=== PATIENT | female | born 1975 | race Caucasian/White ===

== ENCOUNTER 2017-04-25 20:04 | Emergency (ER) | payer SELFPAY ==
--- NOTE | 2017-04-25 20:12 | Emergency Department Report ---
HPI - General Chief Complaint: Altered Mental Status Time Seen by Provider: 04/25/17 20:11 - HPI HPI: Chief complaint not acting right 42-year-old female of descent was brought to ED by son who stated that she wasn't acting right. Son states the patient is an alcoholic and has been drinking tequila all day today. He stated today she drank a little bit more than usual. She is lethargic open her eyes but does not follow command. Patient has been like this before in the past after being severely drunk. No chest pain mild nausea. Upon arrival in the ED patient had one episode of vomiting. Was placed upon aspiration precautions. ED Past Medical Hx - Past Medical History Previous Medical History?: No Hx Hypertension: No Hx CVA: No - Surgical History Past Surgical History?: No Hx Coronary Stent: No Hx Open Heart Surgery: No - Family History Family history: asthma - Social History Smoking Status: Current Some Day Smoker Substance Use Type: Alcohol - Medications Home Medications: Home Medications Medication Instructions Recorded Confirmed Last Taken Type Hydrochlorothiazide [HCTZ] 25 mg PO QDAY #30 tablet 04/26/17 Unknown Rx ED Review of Systems ROS: Stated complaint: AMS Other details as noted in HPI Comment: All other systems reviewed and negative Neurological: weakness, other (lethargic) Psychiatric: anxiety Physical Exam - Physical Exam Physical Exam: Vital signs reviewed Gen. alert and oriented 3 in no distress Head atraumatic normocephalic Eyes PERR LA EOMI Chest regular rate and rhythm normal S1-S2 lungs clear bilaterally Abdomen soft nondistended Back no point tenderness paravertebral tenderness Neuro no focal deficit. Sleepy but easily arousable Psych normal mood. ED Course - Reevaluation(s) Reevaluation #1: 04/26/17 00:35 Observing ED for 3-1/2 hours feels much better much more alert follow commands and does not speak Estonian in room At respirations. Advised to follow up with outpatient alcohol treatment such as alcoholic anonymous. Patient voiced understanding denies inpatient detox. Not sure she is willing to quit at this time. ED Medical Decision Making - Lab Data Result diagrams: 04/25/17 20:40 04/25/17 20:40 Critical care attestation.: If time is entered above; I have spent that time in minutes in the direct care of this critically ill patient, excluding procedure time. ED Disposition Clinical Impression: Alcohol intoxication delirium, acute, hypoactive, Hypertension Disposition: DC-01 TO HOME OR SELFCARE Is pt being admited?: No Does the pt Need Aspirin: No Condition: Stable Instructions: Hypertension (ED) Prescriptions: Hydrochlorothiazide [HCTZ] 25 mg PO QDAY #30 tablet
[2017-04-25] MEDS ORDERED: NACL 0.9% 1000 ML 1,000 ML IV ONE (20:14)
[2017-04-25] MEDS ORDERED: ZOFRAN IV ONE (20:41)
[2017-04-25 20:59] LABS: ISTAT Base Excess -1; ISTAT HCO3 24.6; ISTAT PCO2 46.7 (35-45); ISTAT PO2 108 (80-105); ISTAT SO2 98; ISTAT TCO2 26
[2017-04-25 21:13] LABS: Alanine Aminotransferase 27 units/L (7-56); Albumin/Globulin Ratio 1.3 %; Alkaline Phosphatase 119 units/L (35-129); Anion Gap 18 mmol/L; Bilirubin,Total < 0.20 mg/dL (0.1-1.2); Blood Urea Nitrogen 13 mg/dL (7-17); Calcium 8.9 mg/dL (8.4-10.2); Carbon Dioxide 23 mmol/L (22-30); Chloride 101.8 mmol/L (98-107); Glucose 219 mg/dL (65-100); Potassium 3.8 mmol/L (3.6-5.0); Sodium 139 mmol/L (137-145)
--- NOTE | 2017-04-25 21:20 | Cat Scan Report ---
FINAL REPORT PROCEDURE: CT HEAD/BRAIN WO CON TECHNIQUE: Computerized tomography of the head was performed without contrast material. HISTORY: Altered mental status COMPARISON: No prior studies are available for comparison. FINDINGS: There is no CT evidence of intracranial mass, hemorrhage, acute territorial infarction, or hydrocephalus. The intracranial arteries are symmetric in density. Calvarium is intact. Visualized paranasal sinuses and mastoids are aerated. IMPRESSION: No CT evidence of acute abnormality
[2017-04-25 21:27] LABS: Basophils % (Auto) 0.5 % (0.0-1.8); Eosinophils % (Auto) 1.8 % (0.0-4.3); Hematocrit 37.5 % (30.3-42.9); Hemoglobin 11.9 gm/dl (10.1-14.3); Mean Corpuscular HGB Conc 32 % (30-34); Platelet Count 318 K/mm3 (140-440); Red Blood Count 5.52 M/mm3 (3.65-5.03); Red Cell Distribution Width 18.3 % (13.2-15.2); White Blood Count 9.5 K/mm3 (4.5-11.0)
[2017-04-25 21:35] LABS: Mean Corpuscular Hemoglobin 22 pg (28-32); Mean Corpuscular Volume 68 fl (79-97)
[2017-04-25 22:03] LABS: Urine Drugs of Abuse Note Disclamer
--- NOTE | 2017-04-25 22:20 | XRay Report ---
FINAL REPORT PROCEDURE: XR CHEST 1V AP TECHNIQUE: Chest radiograph anteroposterior view. CPT 22424 HISTORY: Altered mental status COMPARISON: No prior studies are available for comparison. FINDINGS: Heart: Normal. Mediastinum/Vessels: Normal contour. Lungs/Pleural space: No infiltrate, effusion, or pneumothorax. Bony thorax: No acute osseous abnormality. Life support devices: None. IMPRESSION: No radiographic evidence of acute cardiopulmonary abnormality.
[2017-04-25 23:38] VITALS: BP 126/69
== END 2017-04-26 01:12 | disposition home or self-care (01) ==
LOC: ED 20:04
DX: F10.121 Alcohol abuse with intoxication delirium (principal); R03.0 Elevated blood-pressure reading, without diagnosis of hypertension; Z72.0 Tobacco use
CPT/HCPCS: 36415; 51702; 70450; 71010; 80053; 80307; 82803; 82962; 85025; 93005; 93010; 96361; 96374; 99285; G0480; J2405; J7030; 80320

== ENCOUNTER 2022-01-04 22:07 | Inpatient (IN) | payer SELFPAY ==
[2022-01-04] MEDS ORDERED: SODIUM CHLORIDE 0.9% 1000 ML 1,000 ML IV ONE (22:26)
--- NOTE | 2022-01-04 22:26 | Emergency Department Report ---
ED Altered Mental Status HPI - General Chief Complaint: Altered Mental Status Stated Complaint: ETOH/UNRESPONSIVE PUI?: No Time Seen by Provider: 01/04/22 22:25 Source: family, EMS Mode of arrival: Stretcher Limitations: Language Barrier, Altered Mental Status - History of Present Illness Initial Comments: Patient is a 46-year-old female with past medical history significant for diabetes, hypertension. Patient presents emergency department with complaint of altered mental status. Per EMS patient family states she has been drinking heavily. When EMS arrived patient was unresponsive and had vomiting. When patient arrived to the emergency department she is still vomiting and smells of alcohol. Patient unable to give any additional history. - Related Data Previous Rx's Medication Instructions Recorded Last Taken Type hydroCHLOROthiazide [HCTZ] 25 mg PO QDAY #30 tablet 04/26/17 Unknown Rx Allergies Allergy/AdvReac Type Severity Reaction Status Date / Time No Known Allergies Allergy Unverified 04/25/17 20:18 ED Review of Systems ROS: Stated complaint: ETOH/UNRESPONSIVE Other details as noted in HPI Comment: Unobtainable due to pts medical conditions ED Past Medical Hx - Past Medical History Hx Hypertension: No Hx CVA: No - Surgical History Hx Coronary Stent: No Hx Open Heart Surgery: No - Social History Smoking Status: Current Some Day Smoker Substance Use Type: Alcohol - Medications Home Medications: Home Medications Medication Instructions Recorded Confirmed Last Taken Type hydroCHLOROthiazide [HCTZ] 25 mg PO QDAY #30 tablet 04/26/17 Unknown Rx ED Physical Exam - General Limitations: Language Barrier, Altered Mental Status General appearance: lethargic - Head Head exam: Present: atraumatic, normocephalic - Eye Eye exam: Present: normal appearance - ENT ENT exam: Present: mucous membranes moist - Neck Neck exam: Present: normal inspection - Respiratory Respiratory exam: Present: normal lung sounds bilaterally. Absent: respiratory distress - Cardiovascular Cardiovascular Exam: Present: tachycardia. Absent: systolic murmur, diastolic murmur, rubs, gallop - GI/Abdominal GI/Abdominal exam: Present: soft, normal bowel sounds. Absent: distended, tenderness - Rectal Rectal exam: Present: deferred - Extremities Exam Extremities exam: Present: normal inspection - Back Exam Back exam: Present: normal inspection - Neurological Exam Neurological exam: Present: other (Patient is lethargic and appears intoxicated) - Psychiatric Psychiatric exam: Present: normal affect, normal mood - Skin Skin exam: Present: warm, dry, intact, normal color. Absent: rash ED Course Vital Signs 01/04/22 01/04/22 01/04/22 22:44 23:14 23:15 Temperature 98 F Pulse Rate 108 H 102 H 100 H Respiratory 18 17 17 Rate Blood Pressure 142/78 O2 Sat by Pulse 100 95 95 Oximetry 01/04/22 01/04/22 01/04/22 23:31 23:37 23:45 Temperature Pulse Rate 130 H 108 H 104 H Respiratory 30 H 11 L 16 Rate Blood Pressure O2 Sat by Pulse 93 94 80 L Oximetry 01/05/22 01/05/22 01/05/22 00:01 00:15 00:49 Temperature Pulse Rate 99 H 95 H 99 H Respiratory 17 16 22 Rate Blood Pressure O2 Sat by Pulse 81 L 100 99 Oximetry 01/05/22 01/05/22 01/05/22 01:01 01:15 01:31 Temperature Pulse Rate 100 H 94 H 98 H Respiratory 12 16 16 Rate Blood Pressure 145/62 145/62 145/62 O2 Sat by Pulse 96 77 L 78 L Oximetry 01/05/22 01/05/22 01/05/22 01:45 02:01 02:15 Temperature Pulse Rate 97 H 97 H 91 H Respiratory 13 15 17 Rate Blood Pressure 145/62 160/80 160/80 O2 Sat by Pulse 100 100 100 Oximetry 01/05/22 01/05/22 01/05/22 02:31 02:45 03:01 Temperature Pulse Rate 88 93 H 95 H Respiratory 15 17 14 Rate Blood Pressure 160/80 160/80 144/68 O2 Sat by Pulse 100 100 100 Oximetry 01/05/22 01/05/22 01/05/22 03:15 03:31 03:51 Temperature Pulse Rate 92 H 93 H 104 H Respiratory 17 16 15 Rate Blood Pressure 144/68 144/68 144/68 O2 Sat by Pulse 100 100 95 Oximetry 01/05/22 01/05/22 01/05/22 04:09 04:15 04:31 Temperature Pulse Rate 95 H 93 H 92 H Respiratory 19 16 14 Rate Blood Pressure O2 Sat by Pulse 95 91 95 Oximetry - Reevaluation(s) Reevaluation #1: 01/04/22 23:15 Seems to be no longer actively vomiting. Plan for CT scan of the brain. Reevaluation #2: 01/05/22 04:58 CT head is negative. Patient received IV fluid hydration. We will also give subcu insulin as she has negative ketones. Plan for admission given alcohol level 400 at admission. - Lab Data Result diagrams: 01/04/22 23:50 01/04/22 23:50 Lab Results 01/04/22 01/04/22 01/04/22 Range/Units 23:50 23:50 23:50 WBC 7.2 (4.5-11.0) K/mm3 RBC 5.65 H (3.65-5.03) M/mm3 Hgb 11.6 (10.1-14.3) gm/dl Hct 37.5 (30.3-42.9) % MCV 66 L (79-97) fl MCH 21 L (28-32) pg MCHC 31 (30-34) % RDW 20.0 H (13.2-15.2) % Plt Count 377 (140-440) K/mm3 Lymph % (Auto) 30.5 (13.4-35.0) % Johnston % (Auto) 3.0 (0.0-7.3) % Eos % (Auto) 0.6 (0.0-4.3) % Baso % (Auto) 0.4 (0.0-1.8) % Lymph # (Auto) 2.2 (1.2-5.4) K/mm3 Johnston # (Auto) 0.2 (0.0-0.8) K/mm3 Eos # (Auto) 0.0 (0.0-0.4) K/mm3 Baso # (Auto) 0.0 (0.0-0.1) K/mm3 Seg Neutrophils % 65.5 (40.0-70.0) % Seg Neutrophils # 4.7 (1.8-7.7) K/mm3 ABG pH (7.350-7.450) pH Units ABG pCO2 mm Hg ABG pO2 (80.0-90.0) mm Hg ABG HCO3 (20.0-26.0) mmol/L ABG O2 Saturation (95.0-99.0) % ABG O2 Content (0.0-44) ABG Base Excess (-2.0-3.0) mmol/L ABG Hemoglobin (12.0-16.0) gm/dl ABG Carboxyhemoglobin (0.0-5.0) % ABG Methemoglobin (0.0-1.5) % Oxyhemoglobin (95.0-99.0) % FiO2 % Sodium 137 (137-145) mmol/L Potassium 3.7 (3.6-5.0) mmol/L Chloride 98.2 (98-107) mmol/L Carbon Dioxide 17 L (22-30) mmol/L Anion Gap 26 mmol/L BUN 19 H (7-17) mg/dL Creatinine 0.7 (0.6-1.2) mg/dL Estimated GFR > 60 ml/min BUN/Creatinine Ratio 27 % Glucose 357 H (65-100) mg/dL Ketones Quantitative (Negative) Calcium 8.8 (8.4-10.2) mg/dL Total Bilirubin < 0.20 (0.1-1.2) mg/dL AST 23 (5-40) units/L ALT 17 (7-56) units/L Alkaline Phosphatase 146 H (35-129) units/L Total Creatine Kinase 76 (30-135) units/L Troponin T < 0.010 (0.00-0.029) ng/mL Total Protein 6.9 (6.3-8.2) g/dL Albumin 3.8 L (3.9-5) g/dL Albumin/Globulin Ratio 1.2 % HCG, Qual (Negative) Urine Color (Yellow) Urine Turbidity (Clear) Urine pH (5.0-7.0) Ur Specific [place] (1.003-1.030) Urine Protein (Negative) mg/dL Urine Glucose (UA) (Negative) mg/dL Urine Ketones (Negative) mg/dL Urine Blood (Negative) Urine Nitrite (Negative) Urine Bilirubin (Negative) Urine Urobilinogen (<2.0) mg/dL Ur Leukocyte Esterase (Negative) Urine WBC (Auto) (0.0-6.0) /HPF Urine RBC (Auto) (0.0-6.0) /HPF Urine Mucus /HPF Salicylates < 0.3 L (2.8-20.0) mg/dL Urine Opiates Screen Urine Methadone Screen Acetaminophen (10.0-30.0) ug/mL Ur Barbiturates Screen Ur Phencyclidine Scrn Ur Amphetamines Screen U Benzodiazepines Scrn Urine Cocaine Screen U Marijuana (THC) Screen Drugs of Abuse Note Plasma/Serum Alcohol (0-0.07) % 01/04/22 01/04/22 01/04/22 Range/Units 23:50 23:50 23:50 WBC (4.5-11.0) K/mm3 RBC (3.65-5.03) M/mm3 Hgb (10.1-14.3) gm/dl Hct (30.3-42.9) % MCV (79-97) fl MCH (28-32) pg MCHC (30-34) % RDW (13.2-15.2) % Plt Count (140-440) K/mm3 Lymph % (Auto) (13.4-35.0) % Johnston % (Auto) (0.0-7.3) % Eos % (Auto) (0.0-4.3) % Baso % (Auto) (0.0-1.8) % Lymph # (Auto) (1.2-5.4) K/mm3 Johnston # (Auto) (0.0-0.8) K/mm3 Eos # (Auto) (0.0-0.4) K/mm3 Baso # (Auto) (0.0-0.1) K/mm3 Seg Neutrophils % (40.0-70.0) % Seg Neutrophils # (1.8-7.7) K/mm3 ABG pH (7.350-7.450) pH Units ABG pCO2 mm Hg ABG pO2 (80.0-90.0) mm Hg ABG HCO3 (20.0-26.0) mmol/L ABG O2 Saturation (95.0-99.0) % ABG O2 Content (0.0-44) ABG Base Excess (-2.0-3.0) mmol/L ABG Hemoglobin (12.0-16.0) gm/dl ABG Carboxyhemoglobin (0.0-5.0) % ABG Methemoglobin (0.0-1.5) % Oxyhemoglobin (95.0-99.0) % FiO2 % Sodium (137-145) mmol/L Potassium (3.6-5.0) mmol/L Chloride (98-107) mmol/L Carbon Dioxide (22-30) mmol/L Anion Gap mmol/L BUN (7-17) mg/dL Creatinine (0.6-1.2) mg/dL Estimated GFR ml/min BUN/Creatinine Ratio % Glucose (65-100) mg/dL Ketones Quantitative (Negative) Calcium (8.4-10.2) mg/dL Total Bilirubin (0.1-1.2) mg/dL AST (5-40) units/L ALT (7-56) units/L Alkaline Phosphatase (35-129) units/L Total Creatine Kinase (30-135) units/L Troponin T (0.00-0.029) ng/mL Total Protein (6.3-8.2) g/dL Albumin (3.9-5) g/dL Albumin/Globulin Ratio % HCG, Qual Negative (Negative) Urine Color (Yellow) Urine Turbidity (Clear) Urine pH (5.0-7.0) Ur Specific [place] (1.003-1.030) Urine Protein (Negative) mg/dL Urine Glucose (UA) (Negative) mg/dL Urine Ketones (Negative) mg/dL Urine Blood (Negative) Urine Nitrite (Negative) Urine Bilirubin (Negative) Urine Urobilinogen (<2.0) mg/dL Ur Leukocyte Esterase (Negative) Urine WBC (Auto) (0.0-6.0) /HPF Urine RBC (Auto) (0.0-6.0) /HPF Urine Mucus /HPF Salicylates (2.8-20.0) mg/dL Urine Opiates Screen Urine Methadone Screen Acetaminophen 5.0 L (10.0-30.0) ug/mL Ur Barbiturates Screen Ur Phencyclidine Scrn Ur Amphetamines Screen U Benzodiazepines Scrn Urine Cocaine Screen U Marijuana (THC) Screen Drugs of Abuse Note Plasma/Serum Alcohol 0.40 H (0-0.07) % 01/04/22 01/05/22 01/05/22 Range/Units 23:50 02:36 03:57 WBC (4.5-11.0) K/mm3 RBC (3.65-5.03) M/mm3 Hgb (10.1-14.3) gm/dl Hct (30.3-42.9) % MCV (79-97) fl MCH (28-32) pg MCHC (30-34) % RDW (13.2-15.2) % Plt Count (140-440) K/mm3 Lymph % (Auto) (13.4-35.0) % Johnston % (Auto) (0.0-7.3) % Eos % (Auto) (0.0-4.3) % Baso % (Auto) (0.0-1.8) % Lymph # (Auto) (1.2-5.4) K/mm3 Johnston # (Auto) (0.0-0.8) K/mm3 Eos # (Auto) (0.0-0.4) K/mm3 Baso # (Auto) (0.0-0.1) K/mm3 Seg Neutrophils % (40.0-70.0) % Seg Neutrophils # (1.8-7.7) K/mm3 ABG pH 7.291 L (7.350-7.450) pH Units ABG pCO2 50.4 mm Hg ABG pO2 76.9 L (80.0-90.0) mm Hg ABG HCO3 23.7 (20.0-26.0) mmol/L ABG O2 Saturation 94.6 L (95.0-99.0) % ABG O2 Content 19.7 (0.0-44) ABG Base Excess -3.3 L (-2.0-3.0) mmol/L ABG Hemoglobin 10.9 L (12.0-16.0) gm/dl ABG Carboxyhemoglobin 1.6 (0.0-5.0) % ABG Methemoglobin 0.5 (0.0-1.5) % Oxyhemoglobin 92.5 L (95.0-99.0) % FiO2 32 % Sodium (137-145) mmol/L Potassium (3.6-5.0) mmol/L Chloride (98-107) mmol/L Carbon Dioxide (22-30) mmol/L Anion Gap mmol/L BUN (7-17) mg/dL Creatinine (0.6-1.2) mg/dL Estimated GFR ml/min BUN/Creatinine Ratio % Glucose (65-100) mg/dL Ketones Quantitative Negative (Negative) Calcium (8.4-10.2) mg/dL Total Bilirubin (0.1-1.2) mg/dL AST (5-40) units/L ALT (7-56) units/L Alkaline Phosphatase (35-129) units/L Total Creatine Kinase (30-135) units/L Troponin T (0.00-0.029) ng/mL Total Protein (6.3-8.2) g/dL Albumin (3.9-5) g/dL Albumin/Globulin Ratio % HCG, Qual (Negative) Urine Color Straw (Yellow) Urine Turbidity Clear (Clear) Urine pH 5.0 (5.0-7.0) Ur Specific [place] 1.021 (1.003-1.030) Urine Protein <15 mg/dl (Negative) mg/dL Urine Glucose (UA) >=500 (Negative) mg/dL Urine Ketones Tr (Negative) mg/dL Urine Blood Neg (Negative) Urine Nitrite Neg (Negative) Urine Bilirubin Neg (Negative) Urine Urobilinogen < 2.0 (<2.0) mg/dL Ur Leukocyte Esterase Neg (Negative) Urine WBC (Auto) < 1.0 (0.0-6.0) /HPF Urine RBC (Auto) < 1.0 (0.0-6.0) /HPF Urine Mucus Few /HPF Salicylates (2.8-20.0) mg/dL Urine Opiates Screen Urine Methadone Screen Acetaminophen (10.0-30.0) ug/mL Ur Barbiturates Screen Ur Phencyclidine Scrn Ur Amphetamines Screen U Benzodiazepines Scrn Urine Cocaine Screen U Marijuana (THC) Screen Drugs of Abuse Note Plasma/Serum Alcohol (0-0.07) % 01/05/22 01/05/22 Range/Units 03:58 03:59 WBC (4.5-11.0) K/mm3 RBC (3.65-5.03) M/mm3 Hgb (10.1-14.3) gm/dl Hct (30.3-42.9) % MCV (79-97) fl MCH (28-32) pg MCHC (30-34) % RDW (13.2-15.2) % Plt Count (140-440) K/mm3 Lymph % (Auto) (13.4-35.0) % Johnston % (Auto) (0.0-7.3) % Eos % (Auto) (0.0-4.3) % Baso % (Auto) (0.0-1.8) % Lymph # (Auto) (1.2-5.4) K/mm3 Johnston # (Auto) (0.0-0.8) K/mm3 Eos # (Auto) (0.0-0.4) K/mm3 Baso # (Auto) (0.0-0.1) K/mm3 Seg Neutrophils % (40.0-70.0) % Seg Neutrophils # (1.8-7.7) K/mm3 ABG pH (7.350-7.450) pH Units ABG pCO2 mm Hg ABG pO2 (80.0-90.0) mm Hg ABG HCO3 (20.0-26.0) mmol/L ABG O2 Saturation (95.0-99.0) % ABG O2 Content (0.0-44) ABG Base Excess (-2.0-3.0) mmol/L ABG Hemoglobin (12.0-16.0) gm/dl ABG Carboxyhemoglobin (0.0-5.0) % ABG Methemoglobin (0.0-1.5) % Oxyhemoglobin (95.0-99.0) % FiO2 % Sodium (137-145) mmol/L Potassium (3.6-5.0) mmol/L Chloride (98-107) mmol/L Carbon Dioxide (22-30) mmol/L Anion Gap mmol/L BUN (7-17) mg/dL Creatinine (0.6-1.2) mg/dL Estimated GFR ml/min BUN/Creatinine Ratio % Glucose (65-100) mg/dL Ketones Quantitative (Negative) Calcium (8.4-10.2) mg/dL Total Bilirubin (0.1-1.2) mg/dL AST (5-40) units/L ALT (7-56) units/L Alkaline Phosphatase (35-129) units/L Total Creatine Kinase (30-135) units/L Troponin T (0.00-0.029) ng/mL Total Protein (6.3-8.2) g/dL Albumin (3.9-5) g/dL Albumin/Globulin Ratio % HCG, Qual (Negative) Urine Color (Yellow) Urine Turbidity (Clear) Urine pH (5.0-7.0) Ur Specific [place] (1.003-1.030) Urine Protein (Negative) mg/dL Urine Glucose (UA) (Negative) mg/dL Urine Ketones Tr (Negative) mg/dL Urine Blood (Negative) Urine Nitrite (Negative) Urine Bilirubin (Negative) Urine Urobilinogen (<2.0) mg/dL Ur Leukocyte Esterase (Negative) Urine WBC (Auto) (0.0-6.0) /HPF Urine RBC (Auto) (0.0-6.0) /HPF Urine Mucus /HPF Salicylates (2.8-20.0) mg/dL Urine Opiates Screen Negative Urine Methadone Screen Negative Acetaminophen (10.0-30.0) ug/mL Ur Barbiturates Screen Negative Ur Phencyclidine Scrn Negative Ur Amphetamines Screen Negative U Benzodiazepines Scrn Negative Urine Cocaine Screen Negative U Marijuana (THC) Screen Negative Drugs of Abuse Note Disclamer Plasma/Serum Alcohol (0-0.07) % - Medical Decision Making This is a 46-year-old female presents emergency department with complaint of altered mental status. Patient appears intoxicated at this time. Smells of alcohol. Plan for full evaluation including labs to evaluate for DKA given her history of diabetes, will obtain serum ethanol level, will also obtain a CAT scan of the brain given her lack of responsiveness and hypertension. Patient likely to be admitted given her mental status at this time. Critical care attestation.: If time is entered above; I have spent that time in minutes in the direct care of this critically ill patient, excluding procedure time. ED Disposition Clinical Impression: Alcohol intoxication, Metabolic acidosis, Hyperglycemia Disposition: 09 ADMITTED INPATIENT Is pt being admited?: Yes Does the pt Need Aspirin: No Condition: Stable
[2022-01-04] MEDS ORDERED: ONDANSETRON 4 MG/2 ML INJ IV ONE (22:28)
--- NOTE | 2022-01-04 23:14 | XRay Report ---
CHEST 1 VIEW INDICATION / CLINICAL INFORMATION: aspiration. COMPARISON: Chest x-ray 04/25/2017 FINDINGS: SUPPORT DEVICES: None. HEART / MEDIASTINUM: Heart size is upper limits of normal. LUNGS / PLEURA: The lungs are clear. No pneumothorax. ADDITIONAL FINDINGS: No significant additional findings. IMPRESSION: 1. No active cardiopulmonary disease. Signer Name: Michele Pedersen II, MD Signed: 01/04/2022 11:09 PM Workstation Name: [id number]
[2022-01-05 00:19] LABS: Basophils % (Auto) 0.4 % (0.0-1.8); Eosinophils % (Auto) 0.6 % (0.0-4.3); Hematocrit 37.5 % (30.3-42.9); Hemoglobin 11.6 gm/dl (10.1-14.3); Lymphocytes # (Auto) 2.2 K/mm3 (1.2-5.4); Lymphocytes % (Auto) 30.5 % (13.4-35.0); Mean Corpuscular HGB Conc 31 % (30-34); Monocytes # (Auto) 0.2 K/mm3 (0.0-0.8); Platelet Count 377 K/mm3 (140-440); Red Blood Count 5.65 M/mm3 (3.65-5.03)
[2022-01-05 00:33] LABS: Mean Corpuscular Volume 66 fl (79-97)
[2022-01-05 01:20] LABS: Alanine Aminotransferase 17 units/L (7-56); Albumin 3.8 g/dL (3.9-5); Blood Urea Nitrogen 19 mg/dL (7-17); Calcium 8.8 mg/dL (8.4-10.2); Hemolysis Index 14
[2022-01-05 01:32] LABS: BUN/Creatinine Ratio 27
[2022-01-05] MEDS ORDERED: SODIUM CHLORIDE 0.9% 1000 ML 1,000 ML IV ONE (02:27)
[2022-01-05 02:50] LABS: ABG Base Excess -3.3 mmol/L (-2.0-3.0); ABG HCO3 23.7 mmol/L (20.0-26.0); ABG PCO2 50.4 mm Hg; ABG PH 7.291 pH Units (7.350-7.450); ABG PO2 76.9 mm Hg (80.0-90.0)
[2022-01-05 03:27] LABS: ABG Methemoglobin 0.5 % (0.0-1.5); ABG Oxygen Saturation 94.6 % (95.0-99.0)
[2022-01-05 04:11] LABS: Bilirubin,Urine NEG (Negative); Blood,Urine NEG (Negative); Color,Urine Straw (Yellow); Mucus,Urine FEW /HPF; Protein,Urine <15 mg/dL mg/dL (Negative); RBC,Urine < 1.0 /HPF (0.0-6.0); Urobilinogen,Urine < 2.0 mg/dL (<2.0); WBC,Urine < 1.0 /HPF (0.0-6.0)
[2022-01-05 04:17] LABS: Amphetamine Screen,Urine Negative; Benzodiazepines Screen,Urine Negative; Cannabinoid Screen,Urine Negative; Cocaine Screen,Urine Negative; Methadone Screen,Urine Negative; Opiate Screen,Urine Negative
--- NOTE | 2022-01-05 04:43 | Cat Scan Report ---
CT HEAD WITHOUT CONTRAST INDICATION / CLINICAL INFORMATION: Altered mental status. TECHNIQUE: CT head was performed without administration of intravenous contrast. All CT scans at this location are performed using CT dose reduction for ALARA by means of automated exposure control. COMPARISON: CT head 04/25/2017 FINDINGS: CEREBRAL PARENCHYMA: No significant abnormality. No acute territorial infarct. HEMORRHAGE: None. EXTRA-AXIAL SPACES: Normal in size and morphology for the patient's age. VENTRICULAR SYSTEM: Normal in size and morphology for the patient's age. MIDLINE SHIFT / HERNIATION: None. CEREBELLUM / BRAINSTEM: No significant abnormality. ORBITS: Normal as visualized. SOFT TISSUES: No significant abnormality. SKULL: No significant abnormality. PARANASAL SINUSES / MASTOID AIR CELLS: Normal as visualized. ADDITIONAL FINDINGS: None. IMPRESSION: 1. No acute intracranial abnormality. Signer Name: Michele Pedersen II, MD Signed: 01/05/2022 4:38 AM Workstation Name: [id number]
[2022-01-05] MEDS ORDERED: INSULIN REGULAR, HUMAN 100 UNITS/1 ML SUB-Q ONE (04:57)
[2022-01-05] MEDS ORDERED: ALBUTEROL 2.5 MG/3 ML NEBU IH PRN (05:47)
[2022-01-05] MEDS ORDERED: MORPHINE 2 MG/1 ML INJ IV PRN (05:47)
[2022-01-05] MEDS ORDERED: HYDROmorphone 1 MG/1 ML INJ IV PRN (05:47)
[2022-01-05] MEDS ORDERED: LORazepam 2 MG/ML VIAL IV PRN (05:47)
[2022-01-05] MEDS ORDERED: DEXTROSE 50% IN WATER (25GM) 50 ML SYRINGE IV PRN (05:47)
[2022-01-05] MEDS ORDERED: ONDANSETRON 4 MG/2 ML INJ IV PRN (05:47)
[2022-01-05] MEDS ORDERED: ACETAMINOPHEN 325 MG TAB PO PRN (05:47)
[2022-01-05] MEDS ORDERED: THIAMINE 100 MG, FOLIC ACID 1 MG, MULTIPLE VITAMIN INJ, ADULT 10 ML in SODIUM CHLORIDE ... IV ONE (05:51)
--- NOTE | 2022-01-05 05:56 | History and Physical Report ---
History of Present Illness Date of examination: 01/05/22 Date of admission: 01/05/22 Chief complaint: Altered mental status Alcohol intoxication History of present illness: 46-year-old female with history of diabetes, hypertension was brought to the emergency room because of altered mental status. Per EMS patient family states she has been drinking heavily. When EMS arrived patient was unresponsive and had vomiting. When patient arrived to the emergency department she is still vomiting and smells of alcohol. Patient unable to give any additional history. In the emergency room patient is found to have blood glucose of 357, bicarb of 17, anion gap 26 alcohol level is 0.40, ABG shows pH is 7.291, PCO2 50.4, PO2 76.9 O2 sat 94.6%. Ketone is negative. So going to admit the patient we will put the patient on IV fluid, insulin sliding scale, CIWA protocol Past History Past Medical History: diabetes, hypertension, stroke, other (Alcohol abuse) Past Surgical History: No surgical history Social history: smoking, alcohol abuse (Drink unknown amount of alcohol), other (Smoker) Medications and Allergies Allergies Allergy/AdvReac Type Severity Reaction Status Date / Time No Known Allergies Allergy Unverified 04/25/17 20:18 Home Medications Medication Instructions Recorded Confirmed Last Taken Type hydroCHLOROthiazide [HCTZ] 25 mg PO QDAY #30 tablet 04/26/17 Unknown Rx Review of Systems All systems: negative Constitutional: malaise, lethargy, other (Altered mental status, unresponsive) Exam - Constitutional Vitals: Temp Pulse Resp BP Pulse Ox 98 F 92 H 14 144/68 95 01/04/22 22:44 01/05/22 04:31 01/05/22 04:31 01/05/22 03:51 01/05/22 04:31 General appearance: Present: no acute distress, well-nourished - EENT Eyes: Present: PERRL ENT: hearing intact, clear oral mucosa - Neck Neck: Present: supple, normal ROM - Respiratory Respiratory effort: normal Respiratory: bilateral: CTA - Cardiovascular Heart Sounds: Present: S1 & S2. Absent: rub, click - Extremities Extremities: pulses symmetrical, No edema Peripheral Pulses: within normal limits - Abdominal General gastrointestinal: Present: soft, non-tender, non-distended, normal bowel sounds Female genitourinary: Present: normal - Integumentary Integumentary: Present: clear, warm, dry - Musculoskeletal Musculoskeletal: gait normal, strength equal bilaterally - Psychiatric Psychiatric: other (Patient is altered mental status) - Neurologic Neurologic: CNII-XII intact, moves all extremities, other (Patient is altered mental status) HEART Score - HEART Score Troponin: Troponin T < 0.010 ng/mL (0.00-0.029) 01/04/22 23:50 Results - Labs CBC & Chem 7: 01/04/22 23:50 01/04/22 23:50 Labs: Laboratory Last Values WBC 7.2 K/mm3 (4.5-11.0) 01/04/22 23:50 RBC 5.65 M/mm3 (3.65-5.03) H 01/04/22 23:50 Hgb 11.6 gm/dl (10.1-14.3) 01/04/22 23:50 Hct 37.5 % (30.3-42.9) 01/04/22 23:50 MCV 66 fl (79-97) L 01/04/22 23:50 MCH 21 pg (28-32) L 01/04/22 23:50 MCHC 31 % (30-34) 01/04/22 23:50 RDW 20.0 % (13.2-15.2) H 01/04/22 23:50 Plt Count 377 K/mm3 (140-440) 01/04/22 23:50 Lymph % (Auto) 30.5 % (13.4-35.0) 01/04/22 23:50 [place] % (Auto) 3.0 % (0.0-7.3) 01/04/22 23:50 Eos % (Auto) 0.6 % (0.0-4.3) 01/04/22 23:50 Baso % (Auto) 0.4 % (0.0-1.8) 01/04/22 23:50 Lymph # (Auto) 2.2 K/mm3 (1.2-5.4) 01/04/22 23:50 [place] # (Auto) 0.2 K/mm3 (0.0-0.8) 01/04/22 23:50 Eos # (Auto) 0.0 K/mm3 (0.0-0.4) 01/04/22 23:50 Baso # (Auto) 0.0 K/mm3 (0.0-0.1) 01/04/22 23:50 Seg Neutrophils % 65.5 % (40.0-70.0) 01/04/22 23:50 Seg Neutrophils # 4.7 K/mm3 (1.8-7.7) 01/04/22 23:50 ABG pH 7.291 pH Units (7.350-7.450) L 01/05/22 02:36 ABG pCO2 50.4 mm Hg 01/05/22 02:36 ABG pO2 76.9 mm Hg (80.0-90.0) L 01/05/22 02:36 ABG HCO3 23.7 mmol/L (20.0-26.0) 01/05/22 02:36 ABG O2 Saturation 94.6 % (95.0-99.0) L 01/05/22 02:36 ABG O2 Content 19.7 (0.0-44) 01/05/22 02:36 ABG Base Excess -3.3 mmol/L (-2.0-3.0) L 01/05/22 02:36 ABG Hemoglobin 10.9 gm/dl (12.0-16.0) L 01/05/22 02:36 ABG Carboxyhemoglobin 1.6 % (0.0-5.0) 01/05/22 02:36 ABG Methemoglobin 0.5 % (0.0-1.5) 01/05/22 02:36 Oxyhemoglobin 92.5 % (95.0-99.0) L 01/05/22 02:36 FiO2 32 % 01/05/22 02:36 Sodium 137 mmol/L (137-145) 01/04/22 23:50 Potassium 3.7 mmol/L (3.6-5.0) 01/04/22 23:50 Chloride 98.2 mmol/L (98-107) 01/04/22 23:50 Carbon Dioxide 17 mmol/L (22-30) L 01/04/22 23:50 Anion Gap 26 mmol/L 01/04/22 23:50 BUN 19 mg/dL (7-17) H 01/04/22 23:50 Creatinine 0.7 mg/dL (0.6-1.2) 01/04/22 23:50 Estimated GFR > 60 ml/min 01/04/22 23:50 BUN/Creatinine Ratio 27 % 01/04/22 23:50 Glucose 357 mg/dL (65-100) H 01/04/22 23:50 Ketones Quantitative Negative (Negative) 01/04/22 23:50 Osmolality 416 Mosm/kg 01/05/22 03:47 Calcium 8.8 mg/dL (8.4-10.2) 01/04/22 23:50 Total Bilirubin < 0.20 mg/dL (0.1-1.2) 01/04/22 23:50 AST 23 units/L (5-40) 01/04/22 23:50 ALT 17 units/L (7-56) 01/04/22 23:50 Alkaline Phosphatase 146 units/L (35-129) H 01/04/22 23:50 Total Creatine Kinase 76 units/L (30-135) 01/04/22 23:50 Troponin T < 0.010 ng/mL (0.00-0.029) 01/04/22 23:50 Total Protein 6.9 g/dL (6.3-8.2) 01/04/22 23:50 Albumin 3.8 g/dL (3.9-5) L 01/04/22 23:50 Albumin/Globulin Ratio 1.2 % 01/04/22 23:50 HCG, Qual Negative (Negative) 01/04/22 23:50 Urine Color Straw (Yellow) 01/05/22 03:57 Urine Turbidity Clear (Clear) 01/05/22 03:57 Urine pH 5.0 (5.0-7.0) 01/05/22 03:57 Ur Specific [place] 1.021 (1.003-1.030) 01/05/22 03:57 Urine Protein <15 mg/dl mg/dL (Negative) 01/05/22 03:57 Urine Glucose (UA) >=500 mg/dL (Negative) 01/05/22 03:57 Urine Ketones Tr mg/dL (Negative) 01/05/22 03:58 Urine Blood Neg (Negative) 01/05/22 03:57 Urine Nitrite Neg (Negative) 01/05/22 03:57 Urine Bilirubin Neg (Negative) 01/05/22 03:57 Urine Urobilinogen < 2.0 mg/dL (<2.0) 01/05/22 03:57 Ur Leukocyte Esterase Neg (Negative) 01/05/22 03:57 Urine WBC (Auto) < 1.0 /HPF (0.0-6.0) 01/05/22 03:57 Urine RBC (Auto) < 1.0 /HPF (0.0-6.0) 01/05/22 03:57 Urine Mucus Few /HPF 01/05/22 03:57 Salicylates < 0.3 mg/dL (2.8-20.0) L 01/04/22 23:50 Urine Opiates Screen Negative 01/05/22 03:59 Urine Methadone Screen Negative 01/05/22 03:59 Acetaminophen 5.0 ug/mL (10.0-30.0) L 01/04/22 23:50 Ur Barbiturates Screen Negative 01/05/22 03:59 Ur Phencyclidine Scrn Negative 01/05/22 03:59 Ur Amphetamines Screen Negative 01/05/22 03:59 U Benzodiazepines Scrn Negative 01/05/22 03:59 Urine Cocaine Screen Negative 01/05/22 03:59 U Marijuana (THC) Screen Negative 01/05/22 03:59 Drugs of Abuse Note Disclamer 01/05/22 03:59 Plasma/Serum Alcohol 0.40 % (0-0.07) H 01/04/22 23:50 - Imaging and Cardiology Chest x-ray: report reviewed CT Scan - head: report reviewed Assessment and Plan VTE prophylaxis?: Chemical Plan of care discussed with patient/family: Yes - Patient Problems (1) Acute metabolic encephalopathy Current Visit: Yes Status: Acute Plan to address problem: Admit the patient to the medical floor. Metabolic encephalopathy secondary to alcohol abuse and hyperglycemia. NPO. IV fluid half-normal saline at the rate of 125 cc/h. Insulin Humalog sliding scale. Diabetic education. CIWA protocol. We counseled the patient regarding quit drinking (2) Metabolic acidosis Current Visit: Yes Status: Acute Plan to address problem: NPO. IV fluid half-normal saline at the rate of 125 cc/h. Insulin Humalog sliding scale. Diabetic education. BMP in the morning (3) Alcohol intoxication Current Visit: Yes Status: Acute Plan to address problem: NPO. IV fluid half-normal saline at the rate of 125 cc/h. CIWA protocol. We also put the patient on thiamine, folic acid and banana bag daily we counseled the patient regarding quit drinking (4) Hypertension Current Visit: Yes Status: Acute Plan to address problem: Hydralazine 10 mg IV every 6 hours as needed. We continue the home medication (5) Diabetes Current Visit: Yes Status: Acute Plan to address problem: Humalog sliding scale Accu-Chek every 6 hours with high dose coverage. Diabetic education. Recheck BMP in the morning (6) CVA (cerebral vascular accident) Current Visit: Yes Status: Acute Plan to address problem: Stable. Continue the home medication (7) Hyperglycemia Current Visit: Yes Status: Acute Plan to address problem: Humalog sliding scale Accu-Chek every 6 hours with high dose coverage. Diabetic education. Recheck BMP in the morning (8) DVT prophylaxis Current Visit: Yes Status: Acute Plan to address problem: Heparin 5000 units subcu every 12 hours for DVT prophylaxis. Pepcid 20 mg IV every 12 hours for GI prophylaxis. Patient is a full code
[2022-01-05] MEDS ORDERED: DEXTROSE 10% *Hypoglycemia IV PRN (05:59)
[2022-01-05] MEDS ORDERED: INSULIN LISPRO 100 UNIT/ML SUB-Q SCH (06:00)
[2022-01-05] MEDS ORDERED: SODIUM CHLORIDE 0.45% 1000 ML 1,000 ML IV SCH (06:00)
[2022-01-05] MEDS ORDERED: hydrALAZINE 20 MG/1 ML INJ IV PRN ×2 (06:00→08:30)
[2022-01-05] MEDS ORDERED: IPRATROPIUM/ALBUTEROL SULFATE 3 ML AMPUL.NEB IH SCH (08:00)
--- NOTE | 2022-01-05 08:09 | Progress Note ---
Assessment and Plan Assessment and plan: -- Acute toxic metabolic encephalopathy Current Visit: Yes Status: Acute Admit the patient to the medical floor. Metabolic encephalopathy secondary to alcohol abuse and hyperglycemia. NPO. IV fluid half-normal saline at the rate of 125 cc/h. Insulin Humalog sliding scale. Diabetic education. CIWA protocol. We counseled the patient regarding quit drinking --Metabolic acidosis Current Visit: Yes Status: Acute NPO. IV fluid half-normal saline at the rate of 125 cc/h. Insulin Humalog sliding scale. Diabetic education. BMP in the morning -- Alcohol intoxication Current Visit: Yes Status: Acute NPO. IV fluid half-normal saline at the rate of 125 cc/h. CIWA protocol. We also put the patient on thiamine, folic acid and banana bag daily we counseled the patient regarding quit drinking --History of chronic alcohol use; Current Visit: Yes Status: Chronic Counseling strongly advised to quit alcohol intake Advised to follow [facility] support group Also strongly advised to seek alcohol rehabilitation upon discharge -- Hypertension Current Visit: Yes Status: Acute Hydralazine 10 mg IV every 6 hours as needed. We continue the home medication -- Diabetes Current Visit: Yes Status: Acute Humalog sliding scale Accu-Chek every 6 hours with high dose coverage. Diabetic education. Recheck BMP in the morning --History of CVA (cerebral vascular accident) Current Visit: Yes Status: Acute Stable. Continue the home medication -- Hyperglycemia Current Visit: Yes Status: Acute Humalog sliding scale Accu-Chek every 6 hours with high dose coverage. Diabetic education. Recheck BMP in the morning --Morbid obesity; BMI 41.6; Current Visit: Yes Status: Chronic Dietary modification, exercise as tolerated and weight reduction when medically stable Patient would benefit from outpatient bariatric surgical consultation for weight reduction program And patient is stable --DVT prophylaxis Current Visit: Yes Status: Acute Heparin 5000 units subcu every 12 hours for DVT prophylaxis. Pepcid 20 mg IV every 12 hours for GI prophylaxis. Patient is a full code Closely monitor patient and adjust management as needed Hospitalist Physical - Constitutional Vitals: Temp Pulse Resp BP Pulse Ox 98 F 90 16 172/87 100 01/04/22 22:44 01/05/22 06:25 01/05/22 06:25 01/05/22 06:25 01/05/22 06:25 General appearance: Present: no acute distress, well-nourished HEART Score - HEART Score Troponin: Troponin T < 0.010 ng/mL (0.00-0.029) 01/04/22 23:50 Results - Labs CBC & Chem 7: 01/04/22 23:50 01/04/22 23:50 Labs: Laboratory Last Values WBC 7.2 K/mm3 (4.5-11.0) 01/04/22 23:50 RBC 5.65 M/mm3 (3.65-5.03) H 01/04/22 23:50 Hgb 11.6 gm/dl (10.1-14.3) 01/04/22 23:50 Hct 37.5 % (30.3-42.9) 01/04/22 23:50 MCV 66 fl (79-97) L 01/04/22 23:50 MCH 21 pg (28-32) L 01/04/22 23:50 MCHC 31 % (30-34) 01/04/22 23:50 RDW 20.0 % (13.2-15.2) H 01/04/22 23:50 Plt Count 377 K/mm3 (140-440) 01/04/22 23:50 Lymph % (Auto) 30.5 % (13.4-35.0) 01/04/22 23:50 [place] % (Auto) 3.0 % (0.0-7.3) 01/04/22 23:50 Eos % (Auto) 0.6 % (0.0-4.3) 01/04/22 23:50 Baso % (Auto) 0.4 % (0.0-1.8) 01/04/22 23:50 Lymph # (Auto) 2.2 K/mm3 (1.2-5.4) 01/04/22 23:50 [place] # (Auto) 0.2 K/mm3 (0.0-0.8) 01/04/22 23:50 Eos # (Auto) 0.0 K/mm3 (0.0-0.4) 01/04/22 23:50 Baso # (Auto) 0.0 K/mm3 (0.0-0.1) 01/04/22 23:50 Seg Neutrophils % 65.5 % (40.0-70.0) 01/04/22 23:50 Seg Neutrophils # 4.7 K/mm3 (1.8-7.7) 01/04/22 23:50 ABG pH 7.291 pH Units (7.350-7.450) L 01/05/22 02:36 ABG pCO2 50.4 mm Hg 01/05/22 02:36 ABG pO2 76.9 mm Hg (80.0-90.0) L 01/05/22 02:36 ABG HCO3 23.7 mmol/L (20.0-26.0) 01/05/22 02:36 ABG O2 Saturation 94.6 % (95.0-99.0) L 01/05/22 02:36 ABG O2 Content 19.7 (0.0-44) 01/05/22 02:36 ABG Base Excess -3.3 mmol/L (-2.0-3.0) L 01/05/22 02:36 ABG Hemoglobin 10.9 gm/dl (12.0-16.0) L 01/05/22 02:36 ABG Carboxyhemoglobin 1.6 % (0.0-5.0) 01/05/22 02:36 ABG Methemoglobin 0.5 % (0.0-1.5) 01/05/22 02:36 Oxyhemoglobin 92.5 % (95.0-99.0) L 01/05/22 02:36 FiO2 32 % 01/05/22 02:36 Sodium 137 mmol/L (137-145) 01/04/22 23:50 Potassium 3.7 mmol/L (3.6-5.0) 01/04/22 23:50 Chloride 98.2 mmol/L (98-107) 01/04/22 23:50 Carbon Dioxide 17 mmol/L (22-30) L 01/04/22 23:50 Anion Gap 26 mmol/L 01/04/22 23:50 BUN 19 mg/dL (7-17) H 01/04/22 23:50 Creatinine 0.7 mg/dL (0.6-1.2) 01/04/22 23:50 Estimated GFR > 60 ml/min 01/04/22 23:50 BUN/Creatinine Ratio 27 % 01/04/22 23:50 Glucose 357 mg/dL (65-100) H 01/04/22 23:50 Ketones Quantitative Negative (Negative) 01/04/22 23:50 Osmolality 416 Mosm/kg 01/05/22 03:47 Calcium 8.8 mg/dL (8.4-10.2) 01/04/22 23:50 Total Bilirubin < 0.20 mg/dL (0.1-1.2) 01/04/22 23:50 AST 23 units/L (5-40) 01/04/22 23:50 ALT 17 units/L (7-56) 01/04/22 23:50 Alkaline Phosphatase 146 units/L (35-129) H 01/04/22 23:50 Total Creatine Kinase 76 units/L (30-135) 01/04/22 23:50 Troponin T < 0.010 ng/mL (0.00-0.029) 01/04/22 23:50 Total Protein 6.9 g/dL (6.3-8.2) 01/04/22 23:50 Albumin 3.8 g/dL (3.9-5) L 01/04/22 23:50 Albumin/Globulin Ratio 1.2 % 01/04/22 23:50 HCG, Qual Negative (Negative) 01/04/22 23:50 Urine Color Straw (Yellow) 01/05/22 03:57 Urine Turbidity Clear (Clear) 01/05/22 03:57 Urine pH 5.0 (5.0-7.0) 01/05/22 03:57 Ur Specific [place] 1.021 (1.003-1.030) 01/05/22 03:57 Urine Protein <15 mg/dl mg/dL (Negative) 01/05/22 03:57 Urine Glucose (UA) >=500 mg/dL (Negative) 01/05/22 03:57 Urine Ketones Tr mg/dL (Negative) 01/05/22 03:58 Urine Blood Neg (Negative) 01/05/22 03:57 Urine Nitrite Neg (Negative) 01/05/22 03:57 Urine Bilirubin Neg (Negative) 01/05/22 03:57 Urine Urobilinogen < 2.0 mg/dL (<2.0) 01/05/22 03:57 Ur Leukocyte Esterase Neg (Negative) 01/05/22 03:57 Urine WBC (Auto) < 1.0 /HPF (0.0-6.0) 01/05/22 03:57 Urine RBC (Auto) < 1.0 /HPF (0.0-6.0) 01/05/22 03:57 Urine Mucus Few /HPF 01/05/22 03:57 Salicylates < 0.3 mg/dL (2.8-20.0) L 01/04/22 23:50 Urine Opiates Screen Negative 01/05/22 03:59 Urine Methadone Screen Negative 01/05/22 03:59 Acetaminophen 5.0 ug/mL (10.0-30.0) L 01/04/22 23:50 Ur Barbiturates Screen Negative 01/05/22 03:59 Ur Phencyclidine Scrn Negative 01/05/22 03:59 Ur Amphetamines Screen Negative 01/05/22 03:59 U Benzodiazepines Scrn Negative 01/05/22 03:59 Urine Cocaine Screen Negative 01/05/22 03:59 U Marijuana (THC) Screen Negative 01/05/22 03:59 Drugs of Abuse Note Disclamer 01/05/22 03:59 Plasma/Serum Alcohol 0.40 % (0-0.07) H 01/04/22 23:50 Active Medications - Current Medications Current Medications: Generic Name Dose Route Start Last Admin Trade Name Freq PRN Reason Stop Dose Admin Acetaminophen 650 mg 01/05/22 05:47 Acetaminophen 325 Mg Tab PO Q4H PRN Pain MILD(1-3)/Fever >100.5/FOREMAN Albuterol 2.5 mg 01/05/22 05:47 Albuterol 2.5 Mg/3 Ml Nebu IH Q3HRT PRN Shortness Of Breath Albuterol/Ipratropium 1 ampul 01/05/22 08:00 Ipratropium/Albuterol Sulfate 3 Ml Ampul.Neb IH Q6HRT QUAN Dextrose 0 ml 01/05/22 05:59 Dextrose 10% *Hypoglycemia IV PRN PRN Hypoglycemia Famotidine 20 mg 01/05/22 10:00 Famotidine 20 Mg/2 Ml Inj IV BID QUAN Heparin Sodium (Porcine) 5,000 unit 01/05/22 10:00 Heparin 5,000 Unit/1 Ml Vial SUB-Q Q12HR QUAN Hydralazine HCl 10 mg 01/05/22 06:00 Hydralazine 20 Mg/1 Ml Inj IV Q6H PRN Blood Pressure Hydromorphone HCl 0.5 mg 01/05/22 05:47 Hydromorphone 1 Mg/1 Ml Inj IV Q3H PRN Pain , Severe (7-10) Sodium Chloride 1,000 mls @ 125 mls/hr 01/05/22 06:00 Nacl 0.45% 1000 Ml IV DIRECT QUAN Thiamine HCl 100 mg/ Folic 1,011.2 mls @ 250 mls/hr 01/05/22 05:51 01/05/22 06:57 Acid 1 mg/ Multivitamins/ IV 01/05/22 09:53 250 mls/hr Minerals 10 ml/ Sodium DAILY ONE Administration Chloride Insulin Human Lispro 0 unit 01/05/22 06:00 Insulin Lispro 100 Unit/Ml SUB-Q Q6HR QUAN Protocol Lorazepam 2 mg 01/05/22 05:47 Lorazepam 2 Mg/Ml Vial IV Q1H PRN CIWA-Ar 8-15 Morphine Sulfate 2 mg 01/05/22 05:47 Morphine 2 Mg/1 Ml Inj IV Q4H PRN Pain, Moderate (4-6) Ondansetron HCl 4 mg 01/05/22 05:47 Ondansetron 4 Mg/2 Ml Inj IV Q8H PRN Nausea And Vomiting Sodium Chloride 10 ml 01/05/22 10:00 Sodium Chloride 0.9% 10 Ml Flush Syringe IV BID QUAN Sodium Chloride 10 ml 01/05/22 05:47 Sodium Chloride 0.9% 10 Ml Flush Syringe IV PRN PRN LINE FLUSH
[2022-01-05] MEDS ORDERED: FAMOTIDINE 20 MG/2 ML INJ IV SCH (10:00)
[2022-01-05] MEDS ORDERED: HEPARIN 5,000 UNIT/1 ML VIAL SUB-Q SCH (10:00)
[2022-01-05] MEDS ORDERED: hydrALAZINE 25 MG TAB PO SCH (14:00)
[2022-01-05 14:46] VITALS: BP 161/77
--- NOTE | 2022-01-05 17:36 | Discharge Summary ---
Providers - Providers Date of Admission: 01/05/22 05:48 Date of discharge: 01/05/22 Attending physician: RUBEN GARCIA 01/05/22 05:48 Consult to Dietitian/Nutrition [CONS] Routine Physician Instructions: Reason For Exam: Reason for Consult: Diet education Primary care physician: SHE RODRIGUEZ Hospitalization Reason for admission: Acute toxic metabolic encephalopathy/alcohol intoxication Condition: Fair Procedures: CT head without contrast Chest x-ray Hospital course: 44-year-old female patient with significant past medical history of hypertension, diabetes, dyslipidemia was admitted through emergency room with altered level of consciousness and excessive alcohol intake as alcohol intoxication patient's alcohol levels were 0.4 patient blood sugar 7 300s to 400s initial work-up is consistent with alcohol intoxication and patient was promptly admitted to the hospital symptomatically managed with IV fluids multivitamins banana bag Pepcid DVT prophylaxis, Patient also has acute kidney injury which was resolved completely Counseling done patient strongly advised to quit alcohol intake and seek alcohol rehabilitation advised not to drive motor vehicle or operate heavy machinery under the influence of alcohol, patient was also advised smoking cessation as w ell as weight reduction Patient is stable at discharge Patient daughter is driving her home Discharge diagnosis; Acute toxic metabolic encephalopathy Current Visit: Yes Status: Acute --Metabolic acidosis Current Visit: Yes Status: Acute --Alcohol intoxication Current Visit: Yes Status: Acute --Hypertension Current Visit: Yes Status: Acute -- Diabetes type II Current Visit: Yes Status: Acute --h/o CVA (cerebral vascular accident) Current Visit: Yes Status: Acute --DVT prophylaxis Current Visit: Yes Status: Acute Heparin 5000 units subcu every 12 hours Patient is stable at discharge / Disposition: 01 HOME / SELF CARE / HOMELESS Final Discharge Diagnosis (Prints w/discharge instructions): Acute toxic metabolic encephalopathy resolved. Alcohol intoxication improved. Hypertension well controlled. Type 2 diabetes mellitus stable. History of CVA stable. Hyperglycemia due to diabetes mellitus moderate control. Morbid obesity BMI 41.6. ongoing tobacco use. Chronic alcohol use Time spent for discharge: 35 minutes Core Measure Documentation - Palliative Care Palliative Care/ Comfort Measures: Not Applicable - Core Measures Any of the following diagnoses?: none Exam - Constitutional Vitals: Temp Pulse Resp BP Pulse Ox 98 F 85 169 H 161/77 99 01/04/22 22:44 01/05/22 14:45 01/05/22 14:45 01/05/22 14:45 01/05/22 14:45 General appearance: Present: no acute distress, well-nourished, obese - EENT Eyes: Present: PERRL, EOM intact - Neck Neck: Present: supple, normal ROM - Respiratory Respiratory effort: normal Respiratory: bilateral: diminished, negative: rales, rhonchi, wheezing - Cardiovascular Rhythm: regular Heart Sounds: Present: S1 & S2 - Extremities Extremities: no ischemia, No edema - Abdominal General gastrointestinal: Present: soft, non-tender, non-distended, normal bowel sounds - Integumentary Integumentary: Present: clear, warm - Musculoskeletal Musculoskeletal: strength equal bilaterally, generalized weakness - Psychiatric Psychiatric: appropriate mood/affect, cooperative - Neurologic Neurologic: CNII-XII intact, moves all extremities Plan Activity: advance as tolerated, other Diet: diabetic Special Instructions: smoking cessation Additional Instructions: Advised to quit alcohol intake. Smoking cessation advised. If you have worsening symptoms contact MD or go to emergency room as needed. Advised diet modification exercise as tolerated, and weight reduction stable Follow up with: SHE RODRIGUEZ MD [Primary Care Provider] - 3-5 Days Prescriptions: Folic Acid 1 mg PO DAILY #30 Pantoprazole [Protonix TAB] 20 mg PO QDAY #14 tablet. Thiamine HCl [Vitamin B-1] 100 mg PO DAILY #30
[2022-01-05] MEDS ORDERED: metFORMIN 850 MG TAB PO ONE (17:37)
== END 2022-01-05 19:12 | disposition home or self-care (01) | DRG 637 ==
LOC: ED 22:07 → 3A 01-05 05:48
PROVIDERS: ADMIT Hospitalist; ATTEND Internal Medicine
DX: E11.65 Type 2 diabetes mellitus with hyperglycemia (principal); G92.8 Other toxic encephalopathy; E87.2 Acidosis; Z68.41 Body mass index [BMI] 40.0-44.9, adult; N17.9 Acute kidney failure, unspecified; F10.929 Alcohol use, unspecified with intoxication, unspecified; I10 Essential (primary) hypertension; Z86.73 Personal history of transient ischemic attack (TIA), and cerebral infarction without residual deficits; E66.01 Morbid (severe) obesity due to excess calories
CPT/HCPCS: 36415; 70450; 71045; 80053; 80307; 80320; 81001; 82010; 82550; 82803; 83036; 83735; 83930; 84100; 84484; 84703; 85025; G0378; J3490; Q0162; Q9967; G0480; J1815; J2405; J3411; J7030